=== PATIENT | female | born 1980 | race Asian ===

== ENCOUNTER 2019-11-07 19:59 | Emergency (ER) | payer OTHER, BC ==
[~2019-11-07] VITALS: Ht 165.1 cm; Wt 70.3 kg
[~2019-11-07 19:59] MED LIST: DIGE1CAP PO; IBUP400T21 PO
[2019-11-07 22:32] VITALS: BP 137/87
== END 2019-11-07 23:13 | disposition home or self-care (01) ==
LOC: ER 20:07
DX: S33.5XXA Sprain of ligaments of lumbar spine, initial encounter (principal); S29.012A Strain of muscle and tendon of back wall of thorax, initial encounter; M62.838 Other muscle spasm; M25.511 Pain in right shoulder; M54.2 Cervicalgia; R51 Headache; Z79.899 Other long term (current) drug therapy; V89.2XXA Person injured in unspecified motor-vehicle accident, traffic, initial encounter; Y93.89 Activity, other specified; Y92.89 Other specified places as the place of occurrence of the external cause; Y99.8 Other external cause status
CPT/HCPCS: 70450; 71045; 71250; 72125; 72131; 73030; 74176